=== PATIENT | female | born 1985 | race African-American/Black ===

== ENCOUNTER 2016-12-14 12:38 | Emergency (ER) | payer BC ==
[~2016-12-14 12:38] MED LIST: AUGM875T PO; BACL10TA PO; DICL75 PO
[2016-12-14 12:41] VITALS: BP 127/80; PULSE 74; RESP 20; TEMP 97.4; O2SAT 98
[2016-12-14] MEDS ORDERED: CYCL1TAB29 PO (16:03)
[2016-12-14] MEDS ORDERED: IBUP800T23 PO (16:03)
== END 2016-12-14 17:20 | disposition left against medical advice (07) ==
LOC: NED 17:20
DX: Z53.21 Procedure and treatment not carried out due to patient leaving prior to being seen by health care provider (principal)
CPT/HCPCS: 99281; L0150

== ENCOUNTER 2016-12-14 14:52 | Emergency (ER) | payer BC, OTHER ==
[~2016-12-14] VITALS: Ht 170.2 cm; Wt 77.3 kg
[2016-12-14 14:59] VITALS: BP 114/85; PULSE 79; RESP 18; TEMP 97.9; O2SAT 98
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
[2016-12-14] MEDS ORDERED: KETOROLAC TROMETHAMINE 60 MG/2 ML (IM) VIAL IM ONE (16:00)
[2016-12-14] MEDS ORDERED: IBUP800T23 PO (16:03)
[2016-12-14] MEDS ORDERED: CYCL1TAB29 PO (16:03)
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
[2016-12-14 16:35] VITALS: RESP 16
== END 2016-12-14 16:37 | disposition home or self-care (01) ==
LOC: PHEFT 14:52
DX: M54.2 Cervicalgia (principal); V43.93XA Unspecified car occupant injured in collision with pick-up truck in traffic accident, initial encounter; Y93.9 Activity, unspecified; Y92.488 Other paved roadways as the place of occurrence of the external cause
CPT/HCPCS: 73610; 96372; 99284; J1885; L0150

== ENCOUNTER 2017-11-22 19:40 | Emergency (ER) | payer BC, OTHER ==
[~2017-11-22 19:40] MED LIST changes: -AUGM875T PO; -BACL10TA PO; +CYCL10TA PO; -DICL75 PO; +IBUP1TAB7 PO; +TRAZ50TA12 PO
[2017-11-22 19:50] VITALS: BP 128/73; PULSE 81; RESP 14; TEMP 99.3; O2SAT 100
--- NOTE | 2017-11-22 20:29 | PD ---
HPI Chief Complaint: Cold / Flu Symptoms Time Seen by Provider: 20:25 Travel History International Travel<30 days: No Contact w/Intl Traveler<30days: No Traveled to known affect area: No History of Present Illness HPI 31-year-old female presents for evaluation of sore throat, chills, myalgias, cough, congestion. Symptoms started this morning. It hurts to swallow. No alleviating factors. She reports chronic urinary urgency but nothing acute. Denies dysuria, abdominal pain, flank pain, rash or recent travel. No sick contacts. No other complaints at this time. PFSH Past Medical History Cancer: No Cerebrovascular Accident: No Diabetes: No Diminished Hearing: No Integumentary: Yes (ACNE) Myocardial Infarction: No ?: Not Social History Alcohol Use: Yes (OCCASIONAL) Tobacco Use: No (1PPD) Substance Use: No (DENIES) Allergies-Medications (Allergen,Severity, Reaction): Coded Allergies: codeine (Unverified Allergy, Severe, SOB, SPOTS, 05/11/17) Reported Meds & Prescriptions Reported Meds & Active Scripts Active Amoxicillin 875 Mg Tab 875 Mg PO BID 10 Days Flexeril (Cyclobenzaprine HCl) 10 Mg Tab 10 Mg PO TID Ibuprofen 800 Mg Tab 800 Mg PO Q8H Reported Trazodone (Trazodone HCl) 50 Mg Tab 50 Mg PO HS Review of Systems Except as stated in HPI: all other systems reviewed are Neg Physical Exam Narrative GENERAL: Well-nourished female in no acute distress SKIN: Warm and dry. HEAD: Atraumatic. Normocephalic. EYES: Pupils equal and round. No scleral icterus. No injection or drainage. ENT: No nasal bleeding or discharge. Mucous membranes pink and moist. Oropharyngeal erythema and exudate noted. Uvula midline with no mass effect. NECK: Trachea midline. No JVD. Tender anterior cervical lymphadenopathy noted. CARDIOVASCULAR: Regular rate and rhythm. No murmur appreciated. RESPIRATORY: No accessory muscle use. Clear to auscultation. Breath sounds equal bilaterally. GASTROINTESTINAL: Abdomen soft, non-tender, nondistended. Hepatic and splenic margins not palpable. Data Data Last Documented VS Vital Signs Date Time Temp Pulse Resp B/P (MAP) Pulse Ox O2 Delivery O2 Flow Rate FiO2 11/22/17 19:50 99.3 81 14 128/73 (91) 100 Orders Orders Influenzae A/B Antigen (11/22/17 19:52) Group A Rapid Strep Screen (11/22/17 19:52) Urinalysis - C+S If Indicated (11/22/17 19:52) Ed Urine Pregnancytest Poc (11/22/17 19:52) Ed Discharge Order (11/22/17 20:53) Labs Laboratory Tests Test 11/22/17 20:11 Urine Color YELLOW Urine Turbidity HAZY Urine pH 5.5 Urine Specific [place] 1.027 Urine Protein TRACE mg/dL Urine Glucose (UA) NEG mg/dL Urine Ketones NEG mg/dL Urine Occult Blood NEG Urine Nitrite NEG Urine Bilirubin NEG Urine Urobilinogen LESS THAN 2.0 MG/DL Urine Leukocyte Esterase TRACE Urine RBC 2 /hpf Urine WBC 3 /hpf Urine Squamous Epithelial Cells 21 /hpf Urine Bacteria FEW /hpf Urine Mucus FEW /lpf Microscopic Urinalysis Comment CULT NOT INDICATED MDM Medical Decision Making Medical Screen Exam Complete: Yes Emergency Medical Condition: Yes Medical Record Reviewed: Yes Differential Diagnosis Pharyngitis, tonsillitis, peritonsillar abscess, infectious mononucleosis, herpangina, epiglottitis, influenza Narrative Course The patient is positive for group A strep. She will be started on amoxicillin. Diagnosis Primary Impression: Pharyngitis Departure Forms: Tests/Procedures, Work Release Enter return to work date: Nov 24, 2017 Additional Instructions: Medication as prescribed. Stay well hydrated well-nourished. Tylenol or Motrin for fever per dosing instructions on the bottle. Return for any emergent medical conditions. Med/Other Pt SpecificInfo: Prescription(s) given Scripts Amoxicillin (Amoxicillin) 875 Mg Tab 875 MG PO BID for Infection for 10 Days, #20 TAB 0 Refills Prov: Modesta Mattson MD 11/22/17 Disposition: 01 DISCHARGE HOME Condition: Stable [place] Burk Nov 22, 2017 20:29
[2017-11-22 20:34] LABS: BILIRUBIN, URINE NEG (NEG); BLOOD, URINE NEG (NEG); GLUCOSE,URINE NEG (NEG); KETONE, URINE NEG (NEG); MUCUS URINE FEW /lpf (OCC); NITRITE,URINE NEG (NEG); PH, URINE 5.5 (5.0-8.5); SQUAMOUS EPITHELIAL CELL URINE 21 /hpf (0-5); URINE COLOR YELLOW (YELLW/STRAW); URINE LEUKOCYTE ESTERASE TRACE (NEG)
[2017-11-22 20:37] LABS: BACTERIA, URINE FEW /hpf
[2017-11-22] MEDS ORDERED: AMOX875T PO (20:50)
== END 2017-11-22 21:07 | disposition home or self-care (01) ==
LOC: NEPK 19:40
DX: J02.0 Streptococcal pharyngitis (principal); B95.0 Streptococcus, group A, as the cause of diseases classified elsewhere
CPT/HCPCS: 81001; 84703; 87804; 87880; 99283

== ENCOUNTER 2018-02-11 13:17 | Emergency (ER) | END 2018-02-11 16:30 | disposition left against medical advice (07) | DX: K80.80 Other cholelithiasis without obstruction (principal) ==

== ENCOUNTER 2018-02-19 06:28 | Emergency (ER) | payer SELFPAY ==
[~2018-02-19 06:28] MED LIST changes: +AMOX875T PO
[2018-02-19] MEDS ORDERED: IOHEXOL 350 MG/ML 10 ML VIAL (for RAD DIAG) IVCONTRAST ONE (06:29)
[2018-02-19 06:30] VITALS: BP 127/78; PULSE 85; RESP 18; TEMP 98.8; O2SAT 97
[2018-02-19 06:42] VITALS: BP 126/79; PULSE 83; RESP 18; O2SAT 99
--- NOTE | 2018-02-19 07:08 | PD ---
HPI Chief Complaint: Abdominal Pain Time Seen by Provider: 06:58 Travel History International Travel<30 days: No Contact w/Intl Traveler<30days: No Traveled to known affect area: No History of Present Illness HPI 32yo F with PMH of uterine fibroid and cholelithiasis presents to the ED with c/ o lower abdominal pain for 1 week. Pain is constant, sharp. Pain is better when she lies on the left side. Did not take anything for pain. Denies any fever, chest pain, sob, n/v, dysuria, hematuria, vaginal bleeding, vaginal discharge, focal weakness or numbness. Pt said her menstrual period is 6 days late. PFSH Past Medical History Cancer: No Cerebrovascular Accident: No Diabetes: No Diminished Hearing: No Reproductive: Yes (FIBRIODS ON UTERUS) Integumentary: Yes (ACNE) Immunizations Current: Yes Myocardial Infarction: No ?: Unknown Past Surgical History Surgical History: No Previous Surgery Social History Alcohol Use: Yes (OCCASIONAL) Tobacco Use: Yes (1/2 PPD) Substance Use: No (DENIES) Allergies-Medications (Allergen,Severity, Reaction): Coded Allergies: codeine (Unverified Allergy, Severe, SOB, SPOTS, 02/19/18) Reported Meds & Prescriptions Reported Meds & Active Scripts Active Tylenol (Acetaminophen) 325 Mg Tab 650 Mg PO Q6H PRN Review of Systems Except as stated in HPI: all other systems reviewed are Neg Physical Exam Narrative GENERAL: 32yo F in mild distress. SKIN: Focused skin assessment warm/dry. HEAD: Atraumatic. Normocephalic. CARDIOVASCULAR: Regular rate and rhythm. No murmur appreciated. RESPIRATORY: No accessory muscle use. Clear to auscultation. Breath sounds equal bilaterally. GASTROINTESTINAL: Abdomen soft, +TTP LLQ. +TTP suprapubic region. No TTP RLQ or RUQ. No rebound tenderness or guarding. BACK: No CVA tenderness bilaterally. MUSCULOSKELETAL: No obvious deformities. No clubbing. No cyanosis. No edema. NEUROLOGICAL: Awake and alert. No obvious cranial nerve deficits. Motor grossly within normal limits. Normal speech. PSYCHIATRIC: Appropriate mood and affect; insight and judgment normal. Data Data Last Documented VS Vital Signs Date Time Temp Pulse Resp B/P (MAP) Pulse Ox O2 Delivery O2 Flow Rate FiO2 02/19/18 09:02 62 18 96/64 (75) 100 Room Air 02/19/18 06:30 98.8 Orders Orders Ed Urine Pregnancytest Poc (02/19/18 06:46) Urinalysis - C+S If Indicated (02/19/18 07:03) Complete Blood Count With Diff (02/19/18 07:03) Comprehensive Metabolic Panel (02/19/18 07:03) Lipase (02/19/18 07:03) Ketorolac Inj (Toradol Inj) (02/19/18 07:15) Ct Abd/Pel W Iv Contrast(Rout) (02/19/18 ) Acetaminophen (Tylenol) (02/19/18 09:00) Iohexol 350 Inj (Omnipaque 350 Inj) (02/19/18 06:29) Ed Discharge Order (02/19/18 09:52) Labs Laboratory Tests Test 02/19/18 07:10 White Blood Count 8.8 TH/MM3 Red Blood Count 4.28 MIL/MM3 Hemoglobin 13.8 GM/DL Hematocrit 40.4 % Mean Corpuscular Volume 94.4 FL Mean Corpuscular Hemoglobin 32.2 PG Mean Corpuscular Hemoglobin Concent 34.1 % Red Cell Distribution Width 12.7 % Platelet Count 276 TH/MM3 Mean Platelet Volume 9.3 FL Neutrophils (%) (Auto) 52.7 % Lymphocytes (%) (Auto) 38.8 % Monocytes (%) (Auto) 7.2 % Eosinophils (%) (Auto) 0.9 % Basophils (%) (Auto) 0.4 % Neutrophils # (Auto) 4.6 TH/MM3 Lymphocytes # (Auto) 3.4 TH/MM3 Monocytes # (Auto) 0.6 TH/MM3 Eosinophils # (Auto) 0.1 TH/MM3 Basophils # (Auto) 0.0 TH/MM3 CBC Comment DIFF FINAL Differential Comment Urine Color YELLOW Urine Turbidity HAZY Urine pH 6.5 Urine Specific [place] 1.030 Urine Protein TRACE mg/dL Urine Glucose (UA) NEG mg/dL Urine Ketones NEG mg/dL Urine Occult Blood NEG Urine Nitrite NEG Urine Bilirubin NEG Urine Urobilinogen 4.0 MG/DL Urine Leukocyte Esterase NEG Urine RBC LESS THAN 1 /hpf Urine WBC 1 /hpf Urine Squamous Epithelial Cells 5 /hpf Urine Mucus FEW /lpf Microscopic Urinalysis Comment CULT NOT INDICATED Blood Urea Nitrogen 15 MG/DL Creatinine 0.83 MG/DL Random Glucose 87 MG/DL Total Protein 7.6 GM/DL Albumin 4.0 GM/DL Calcium Level 8.5 MG/DL Alkaline Phosphatase 84 U/L Aspartate Amino Transf (AST/SGOT) 35 U/L Alanine Aminotransferase (ALT/SGPT) 51 U/L Total Bilirubin 0.3 MG/DL Sodium Level 142 MEQ/L Potassium Level 3.8 MEQ/L Chloride Level 110 MEQ/L Carbon Dioxide Level 23.7 MEQ/L Anion Gap 8 MEQ/L Estimat Glomerular Filtration Rate 96 ML/MIN Lipase 186 U/L [facility] Medical Decision Making Medical Screen Exam Complete: Yes Emergency Medical Condition: Yes Differential Diagnosis vs. cystitis vs. colitis vs. menstrual cramps vs. nephrolithiasis Narrative Course 32yo well appearing female here with lower abdominal pain. Urine negative. Labs reviewed, no leukocytosis. H/H normal. CMP unremarkable. Lipase normal. UA showed WBC 1. Culture not indicated. Pt given toradol and pain improved but still there so insistent on imaging. CT a/p showed bilateral ovarian cysts, right greater than left. Small amount of free fluid in the right adnexa and cul-de-sac. Bulky prominent uterus suggestive of a fibroid uterus. Pt knows about this. Otherwise rest of exam is within normal limits for patient's age. Pain did improve after acetaminophen. Pt denies any nausea or vomiting. Pt advised to follow up with ORTHOPEDIC RN. Return precautions given. 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 Return to the ED if symptoms worsen. Med/Other Pt SpecificInfo: Prescription(s) given Scripts Acetaminophen (Tylenol) 325 Mg Tab 650 MG PO Q6H Y for PAIN SCALE 1 TO 4, #20 TAB 0 Refills Prov: Anyi Urban DO 02/19/18 Disposition: 01 DISCHARGE HOME Condition: Stable Anyi Urban DO February 19, 2018 07:08
[2018-02-19 07:15] VITALS: BP 123/71; PULSE 78; RESP 18; O2SAT 97
[2018-02-19] MEDS ORDERED: KETOROLAC TROMETHAMINE 30 MG/ML (IVP) VIAL IV PUSH ONE (07:15)
[2018-02-19 07:40] LABS: AUTOMATED NEUTROPHIL # 4.6 TH/MM3 (1.8-7.7); BASOPHIL % 0.4 % (0.0-2.0); EOSINOPHIL # 0.1 TH/MM3 (0-0.4); EOSINOPHIL % 0.9 % (0.0-4.0); HEMATOCRIT 40.4 % (35.0-46.0); HEMOGLOBIN 13.8 GM/DL (11.6-15.3); LYMPH % 38.8 % (9.0-44.0); LYMPHOCYTE # 3.4 TH/MM3 (1.0-4.8); MEAN CELL VOLUME 94.4 FL (80.0-100.0); MEAN CORPUSCULAR HEMOGLOBIN 32.2 PG (27.0-34.0); MEAN CORPUSCULAR HGB CONC 34.1 % (32.0-36.0); MEAN PLATELET VOLUME 9.3 FL (7.0-11.0); MONO % 7.2 % (0.0-8.0); MONOCYTE # 0.6 TH/MM3 (0-0.9); NEUT % 52.7 % (16.0-70.0); PLATELET COUNT 276 TH/MM3 (150-450); RED BLOOD COUNT 4.28 MIL/MM3 (4.00-5.30); RED CELL DISTRIBUTION WIDTH 12.7 % (11.6-17.2); WHITE BLOOD COUNT 8.8 TH/MM3 (4.0-11.0)
[2018-02-19 07:44] LABS: BILIRUBIN, URINE NEG (NEG); BLOOD, URINE NEG (NEG); GLUCOSE,URINE NEG (NEG); KETONE, URINE NEG (NEG); MUCUS URINE FEW /lpf (OCC); NITRITE,URINE NEG (NEG); PH, URINE 6.5 (5.0-8.5); SQUAMOUS EPITHELIAL CELL URINE 5 /hpf (0-5); URINE COLOR YELLOW (YELLW/STRAW); URINE LEUKOCYTE ESTERASE NEG (NEG)
[2018-02-19 08:17] LABS: AST (GOT) 35 U/L (15-37); BICARBONATE 23.7 MEQ/L (21.0-32.0); BLOOD UREA NITROGEN 15 MG/DL (7-18); CALCIUM 8.5 MG/DL (8.5-10.1); CHLORIDE 110 MEQ/L (98-107); CREATININE 0.83 MG/DL (0.50-1.00); GLOMERULAR FILTRATION RATE 96 ML/MIN (>89); GLUCOSE,RANDOM 87 MG/DL (74-106); SODIUM (NA) 142 MEQ/L (136-145)
[2018-02-19 08:18] LABS: ALT (GPT) 51 U/L (10-53)
[2018-02-19 08:20] LABS: ALKALINE PHOSPHATASE 84 U/L (45-117); TOTAL BILIRUBIN ADULT 0.3 MG/DL (0.2-1.0); TOTAL PROTEIN 7.6 GM/DL (6.4-8.2)
[2018-02-19] MEDS ORDERED: ACETAMINOPHEN 325 MG TAB PO ONE (09:00)
[2018-02-19 09:02] VITALS: BP 96/64; PULSE 62; RESP 18; O2SAT 100
--- NOTE | 2018-02-19 09:37 | RADRPT ---
EXAM DATE: 02/19/2018 9:29 AM EDT AGE/SEX: 32 years / Female INDICATIONS: Bilateral lower quadrant pain, sometimes severe. CLINICAL DATA: This is the patient's initial encounter. Patient reports that signs and symptoms have been present for 2 days and indicates a pain score of 7/10. MEDICAL/SURGICAL HISTORY: Gastroesophageal reflux disease. Uterine fibroids, gallstones. None. ORAL CONTRAST: No oral contrast ingested. RADIATION DOSE: 8.73 CTDI (mGy) COMPARISON: No prior [place] exams available for comparison. TECHNIQUE: Multiple contiguous axial images were obtained through the abdomen and pelvis following b olus infusion of 96 ml Omnipaque 350 (iohexol) nonionic water-soluble contrast as a single exam dos e. No oral contrast ingested. Using automated exposure control and adjustment of the mA and/or kV ac cording to patient size, the radiation dose was kept as low as reasonably achievable to obtain optima l diagnostic quality images. FINDINGS: Lower Lungs: The visualized lower lungs are clear. Liver: The liver has a homogeneous density without space-occupying lesion. There is no dilation of th e biliary tree. The gallbladder is grossly unremarkable. Spleen: Homogeneous density without enlargement. Pancreas: Unremarkable without mass or calcification. Kidneys: Normal in size and shape. No evidence of mass or hydronephrosis. Adrenal Glands: Unremarkable. Aorta: The aorta and proximal iliac vessels are grossly unremarkable without aneurysmal dilation. Bowel/Mesentery: The bowel loops are grossly unremarkable. The cecum and sigmoid colon have a normal configuration. No inflammatory changes are demonstrated. There is stool throughout the colon. The ap pendix is unremarkable. Abdominal Wall: Intact. Retroperitoneum: No evidence of adenopathy in the retrocrural, para-aortic, or deep pelvic regions. Bladder: Contours are smooth. No calcified stones. Reproductive Organs: The uterus is bulky in size. There is a right ovarian cyst measuring 4.6 x 2.9 cm. There is free fluid in the right adnexa and cul-de-sac. There is also a left ovarian cyst measuri ng 3.4 cm. Inguinal: The inguinal region is unremarkable without evidence of adenopathy. Bony Structures: Unremarkable. CONCLUSION: 1. Bilateral ovarian cysts, right greater than left. 2. Small amount of free fluid in the right adnexa and cul-de-sac. 3. Bulky prominent uterus suggestive of a fibroid uterus. 4. Otherwise, the rest of the examination is within normal limits for patient's age. Electronically signed by: Alex Cazares MD 02/19/2018 9:36 AM EDT
[2018-02-19] MEDS ORDERED: TYLE325T PO (09:51)
== END 2018-02-19 10:13 | disposition home or self-care (01) ==
LOC: NEPC 06:28
DX: N83.202 Unspecified ovarian cyst, left side (principal); N83.201 Unspecified ovarian cyst, right side; D25.9 Leiomyoma of uterus, unspecified; F17.200 Nicotine dependence, unspecified, uncomplicated
CPT/HCPCS: 74177; 80053; 81001; 83690; 84703; 85025; 96374; 99284; J1885; Q9967

== ENCOUNTER 2018-02-21 00:20 | Emergency (ER) | payer SELFPAY ==
[~2018-02-21 00:20] MED LIST changes: -AMOX875T PO; -CYCL10TA PO; -IBUP1TAB7 PO; -TRAZ50TA12 PO; +TYLE325T PO
[2018-02-21 00:25] VITALS: BP 152/93; PULSE 82; RESP 20; TEMP 97.7; O2SAT 99
[2018-02-21] MEDS ORDERED: SODIUM CHLOR 0.9% 1000 ML INJ 1,000 ML IV ONE (00:57)
[2018-02-21] MEDS ORDERED: KETOROLAC TROMETHAMINE 30 MG/ML (IVP) VIAL IV PUSH ONE (01:00)
[2018-02-21] MEDS ORDERED: HYDROmorphone HCL PF 2 MG/ML VIAL IV PUSH ONE (01:15)
[2018-02-21] MEDS ORDERED: METOCLOPRAMIDE HCL 10 MG/2 ML VIAL IV PUSH ONE (01:15)
[2018-02-21 01:24] LABS: BASOPHIL % 0.4 % (0.0-2.0); EOSINOPHIL # 0.1 TH/MM3 (0-0.4); EOSINOPHIL % 0.9 % (0.0-4.0); HEMATOCRIT 38.4 % (35.0-46.0); LYMPH % 35.8 % (9.0-44.0); LYMPHOCYTE # 2.6 TH/MM3 (1.0-4.8); MEAN CELL VOLUME 94.7 FL (80.0-100.0); MEAN CORPUSCULAR HEMOGLOBIN 32.1 PG (27.0-34.0); MEAN CORPUSCULAR HGB CONC 33.9 % (32.0-36.0); MONO % 7.2 % (0.0-8.0); MONOCYTE # 0.5 TH/MM3 (0-0.9); NEUT % 55.7 % (16.0-70.0); PLATELET COUNT 255 TH/MM3 (150-450); RED BLOOD COUNT 4.05 MIL/MM3 (4.00-5.30); RED CELL DISTRIBUTION WIDTH 12.8 % (11.6-17.2); WHITE BLOOD COUNT 7.2 TH/MM3 (4.0-11.0)
[2018-02-21 01:45] LABS: BICARBONATE 26.2 MEQ/L (21.0-32.0); BLOOD UREA NITROGEN 12 MG/DL (7-18); CALCIUM 7.9 MG/DL (8.5-10.1); CHLORIDE 111 MEQ/L (98-107); CREATININE 0.72 MG/DL (0.50-1.00); GLOMERULAR FILTRATION RATE 113 ML/MIN (>89); GLUCOSE,RANDOM 80 MG/DL (74-106); SODIUM (NA) 143 MEQ/L (136-145)
[2018-02-21] MEDS ORDERED: PROMETHAZINE INJ 25 MG/ML VIAL ONE (02:24)
--- NOTE | 2018-02-21 02:37 | RADRPT ---
EXAM DATE: 02/21/2018 2:30 AM EDT AGE/SEX: 32 years / Female INDICATIONS: Pelvic pain. CLINICAL DATA: This is the patient's initial encounter. Patient reports that signs and symptoms have been present for 1 day and indicates a pain score of 8/10. MEDICAL/SURGICAL HISTORY: . Fibroid. . COMPARISON: No prior exams available for comparison. No external comparison. MEASUREMENTS: Uterus:__14.5 x 6.3 x 6.3 cm Endometrial Stripe:__12 mm Right Ovary:__ 7.9 x 3.9 x 4.0 cm Left Ovary:__ 3.8 x 3.0 x 2.2 cm FINDINGS: Uterus: There are 2 large fibroids within the uterus measuring 11.3 cm and 2.6 cm. Right Ovary: There is a complex cyst in the right ovary measures 4.6 cm in size. Left Ovary: Unremarkable. Other: No free fluid. CONCLUSION: 1. Large uterine fibroids and probable complex cyst in the right ovary could be followed with repeat pelvic ultrasound in 6 months. Electronically signed by: Mindi Bautista MD 02/21/2018 2:36 AM EDT
[2018-02-21] MEDS ORDERED: DOXYCYCLINE HYCLATE 100 MG CAP PO ONE (03:00)
[2018-02-21] MEDS ORDERED: cefTRIAXone INJ 1,000 MG in SODIUM CHLORIDE 0.9% INJ 100 ML IV ONE (03:00)
[2018-02-21] MEDS ORDERED: METR-1 PO (03:09)
[2018-02-21] MEDS ORDERED: DOXY100C PO (03:09)
[2018-02-21] MEDS ORDERED: PROM25TA10 PO (03:09)
[2018-02-21] MEDS ORDERED: NAPR5TAB5 PO (03:09)
--- NOTE | 2018-02-21 03:11 | PD ---
HPI Chief Complaint: Abdominal Pain Time Seen by Provider: 00:57 Travel History International Travel<30 days: No Contact w/Intl Traveler<30days: No Traveled to known affect area: No History of Present Illness HPI 32-year-old female presents to the emergency department complaint of severe lower abdominal pain. Patient states that she was just seen in the emergency room last night and diagnosed with ovarian cysts. Patient had lab work performed the abdomen pelvis performed which showed ovarian cyst patient was encouraged to use Tylenol and ibuprofen for symptom relief. Patient returns at this time stating that she does not believe she is test was negative yesterday she has severe abdominal pain that is not resolved with Tylenol or ibuprofen and does admit to mild vaginal discharge. Patient states she did not receive a pelvic exam yesterday. Patient rates pain 10/10 in intensity is worsened by movement and no relief is remaining still. Patient also denies any relief from Tylenol or acetaminophen. Patient takes no medications on a routine basis and denies having any chronic medical conditions. PFSH Past Medical History Narrative Medical Ovarian cyst, uterine fibroids, tobacco use; nursing notes reviewed Cancer: No Cerebrovascular Accident: No Diabetes: No Diminished Hearing: No Reproductive: Yes (FIBRIODS ON UTERUS) Integumentary: Yes (ACNE) Immunizations Current: Yes Myocardial Infarction: No Tetanus Vaccination: < 5 Years Influenza Vaccination: Yes ?: Not Social History Alcohol Use: Yes (OCCASIONAL) Tobacco Use: Yes (1/2 PPD) Substance Use: No (DENIES) Allergies-Medications (Allergen,Severity, Reaction): Coded Allergies: codeine (Unverified Allergy, Severe, SOB, SPOTS, 02/21/18) Reported Meds & Prescriptions Reported Meds & Active Scripts Active Phenergan (Promethazine HCl) 25 Mg Tablet 25 Mg PO Q6H PRN Flagyl (Metronidazole) 500 Mg Tab 500 Mg PO TID 7 Days Doxycycline Hyclate 100 Mg Cap 100 Mg PO BID 7 Days Anaprox DS (Naproxen Sodium) 550 Mg Tab 550 Mg PO Q12HR Review of Systems Except as stated in HPI: all other systems reviewed are Neg General / Constitutional: No: Fever, Chills HENT: No: Congestion Cardiovascular: No: Chest Pain or Discomfort Respiratory: No: Shortness of Breath Gastrointestinal: Positive: Vomiting, Abdominal Pain, No: Nausea Genitourinary: Positive: Pelvic Pain, Discharge, No: Dysuria, Vaginal Bleeding Musculoskeletal: No: Myalgias, Arthralgias Skin: No Rash Neurologic: No: Weakness, Dizziness Psychiatric: No: Anxiety Hematologic/Lymphatic: No: Easy Bruising Physical Exam Narrative GENERAL: Well-developed well-nourished female in obvious discomfort on her side intermittently rocking back and forth holding her lower abdomen SKIN: Warm and dry. HEAD: Normocephalic. EYES: No scleral icterus. No injection or drainage. NECK: Supple, trachea midline. No JVD or lymphadenopathy. CARDIOVASCULAR: Regular rate and rhythm without murmurs, gallops, or rubs. RESPIRATORY: Breath sounds equal bilaterally. No accessory muscle use. GASTROINTESTINAL: Abdomen soft, marked tenderness to palpation with voluntary guarding, nondistended. Pelvic exam: Normal external exam no redness induration or lesions white discharge cervical loss is closed no blood no clots no tissue; bimanual exam positive chandelier sign. MUSCULOSKELETAL: No cyanosis, or edema. BACK: Nontender without obvious deformity. No CVA tenderness. Data Data Last Documented VS Vital Signs Date Time Temp Pulse Resp B/P (MAP) Pulse Ox O2 Delivery O2 Flow Rate FiO2 02/21/18 03:28 02/21/18 00:25 97.7 82 20 99 Room Air Orders Orders Beta Hcg (Quant/Titer) (02/21/18 00:57) Complete Blood Count With Diff (02/21/18 00:57) Basic Metabolic Panel (Bmp) (02/21/18 00:57) Gc And Chlamydia Pcr (02/21/18 00:57) Wet Prep Profile (02/21/18 00:57) Iv Access Insert/Monitor (02/21/18 00:57) Sodium Chlor 0.9% 1000 Ml Inj (Ns 1000 M (02/21/18 00:57) Ketorolac Inj (Toradol Inj) (02/21/18 01:00) Metoclopramide Inj (Reglan Inj) (02/21/18 01:15) Hydromorphone Pf Inj (Dilaudid Pf Inj) (02/21/18 01:15) Us Pelvis Comp W Dop Transvag (02/21/18 00:57) Promethazine Inj (Phenergan Inj) (02/21/18 02:24) Ceftriaxone Inj (Rocephin Inj) (02/21/18 03:00) Doxycycline (Vibramycin) (02/21/18 03:00) Promethazine Inj (Phenergan Inj) (02/21/18 03:15) Ed Discharge Order (02/21/18 03:11) Labs Laboratory Tests Test 02/21/18 01:10 White Blood Count 7.2 TH/MM3 Red Blood Count 4.05 MIL/MM3 Hemoglobin 13.0 GM/DL Hematocrit 38.4 % Mean Corpuscular Volume 94.7 FL Mean Corpuscular Hemoglobin 32.1 PG Mean Corpuscular Hemoglobin Concent 33.9 % Red Cell Distribution Width 12.8 % Platelet Count 255 TH/MM3 Mean Platelet Volume 9.0 FL Neutrophils (%) (Auto) 55.7 % Lymphocytes (%) (Auto) 35.8 % Monocytes (%) (Auto) 7.2 % Eosinophils (%) (Auto) 0.9 % Basophils (%) (Auto) 0.4 % Neutrophils # (Auto) 4.0 TH/MM3 Lymphocytes # (Auto) 2.6 TH/MM3 Monocytes # (Auto) 0.5 TH/MM3 Eosinophils # (Auto) 0.1 TH/MM3 Basophils # (Auto) 0.0 TH/MM3 CBC Comment DIFF FINAL Differential Comment Clue Cells (Wet Prep) PRESENT Vaginal Trichomonas (Wet Prep) NONE SEEN Vaginal Yeast (Wet Prep) NONE SEEN Blood Urea Nitrogen 12 MG/DL Creatinine 0.72 MG/DL Random Glucose 80 MG/DL Calcium Level 7.9 MG/DL Sodium Level 143 MEQ/L Potassium Level 4.0 MEQ/L Chloride Level 111 MEQ/L Carbon Dioxide Level 26.2 MEQ/L Anion Gap 6 MEQ/L Estimat Glomerular Filtration Rate 113 ML/MIN Human Chorionic Gonadotropin, Quant LESS THAN 1 MIU/ML Chlamydia trachomatis DNA (PCR) NOT DETECTED Neisseria gonorrhoeae DNA (PCR) NOT DETECTED MDM Medical Decision Making Medical Screen Exam Complete: Yes Emergency Medical Condition: Yes Medical Record Reviewed: Yes Interpretation(s) HCG: Negative Quantitative hCG less than 1, negative Last Impressions Abdomen/Pelvis/Transvag US 02/21/18 9687 Signed Impressions: CONCLUSION: 1. Large uterine fibroids and probable complex cyst in the right ovary could b e followed with repeat pelvic ultrasound in 6 months. CBC & BMP Diagram 02/21/18 01:10 Calcium Level 7.9 L Vital Signs Date Time Temp Pulse Resp B/P (MAP) Pulse Ox O2 Delivery O2 Flow Rate FiO2 02/21/18 00:25 97.7 82 20 152/93 (112) 99 Room Air UA: 02/19/18 negative Differential Diagnosis Abdominal pain ruptured ovarian cyst ovarian torsion tubo-ovarian abscess PID Narrative Course IV access obtained specimens collected and sent for resulting patient administered Toradol 30 mg IV Dilaudid 0.5 mg IV Reglan 10 mg IV 1 L normal saline Stat ultrasound of pelvis to evaluate for ovarian torsion ordered Pelvic exam performed patient with positive chandelier sign patient administered IV antibiotics and additional IV fluids and Phenergan 25 mg IM for nausea vomiting At 3:10 AM patient is clinically improved and stable for outpatient management Diagnosis Primary Impression: PID (acute pelvic inflammatory disease) Additional Impression: Ovarian cyst Referrals: [facility] call for appointment Patient Instructions: General Instructions, Narcotic given in the ED Additional Instructions: Increase fluid hydration Complete course of antibiotic as prescribed Take Anaprox as prescribed as needed for pain Take Phenergan as prescribed as needed for nausea vomiting Take acetaminophen as needed for fever 100.4F or greater Return to the emergency department for any concerns or change in condition or fever Follow-up with [facility] Promethazine (Phenergan) 25 Mg Tablet 25 MG PO Q6H Y for NAUSEA OR VOMITING, #7 TAB 0 Refills Prov: Modesta Mattson MD 02/21/18 Metronidazole (Flagyl) 500 Mg Tab 500 MG PO TID for Infection for 7 Days, TAB 0 Refills Prov: Modesta Mattson MD 02/21/18 Doxycycline Hyclate (Doxycycline Hyclate) 100 Mg Cap 100 MG PO BID for Infection for 7 Days, #14 CAP 0 Refills Prov: Modesta Mattson MD 02/21/18 Naproxen Sodium DS (Anaprox DS) 550 Mg Tab 550 MG PO Q12HR, #12 TAB 0 Refills Prov: Modesta Mattson MD 02/21/18 Disposition: 01 DISCHARGE HOME Condition: Stable Modesta Mattson MD February 21, 2018 03:11
[2018-02-21] MEDS ORDERED: PROMETHAZINE INJ 25 MG/ML VIAL IM ONE (03:15)
== END 2018-02-21 03:33 | disposition home or self-care (01) ==
LOC: NEPC 00:20
DX: N73.9 Female pelvic inflammatory disease, unspecified (principal); N83.209 Unspecified ovarian cyst, unspecified side; D25.9 Leiomyoma of uterus, unspecified; F17.200 Nicotine dependence, unspecified, uncomplicated
CPT/HCPCS: 76830; 76856; 80048; 84702; 85025; 87210; 87491; 87591; 93975; 96361; 96372; 96374; 96375; 99285; J0696; J1170; J1885; J2550; J2765; J7030